=== PATIENT | female | born 2000 | race Caucasian/White ===

== ENCOUNTER 2024-03-24 17:37 | Emergency (ER) | payer OTHER ==
[~2024-03-24] VITALS: Ht 165.1 cm; Wt 73.0 kg
[2024-03-24 17:45] VITALS: O2SAT 96
[2024-03-24 19:02] LABS: HEMATOCRIT. 41.5 % (36.0-48.0); HEMOGLOBIN. 14.2 g/dL (12.0-16.0); MEAN CORPUSCULAR HEMOGLOBIN 31.1 pg (28.0-32.0); MEAN CORPUSCULAR HGB CONC 34.2 g/dL (31.0-37.0); MEAN CORPUSCULAR VOLUME 90.9 fL (81.0-99.0); MEAN PLATELET VOLUME 8.1 fl (7.4-10.4); PLATELET 332 x1000/uL (130-400); RED BLOOD CELL COUNT 4.57 mill/uL (4.2-5.4); RED CELL DISTRIBUTION WIDTH 13.6 % (11.6-14.6); WHITE BLOOD COUNT 17.1 x1000/uL (4.5-11.0)
[2024-03-24 19:03] LABS: DIFFERENTIAL COMMENT 1
[2024-03-24] MEDS: TETANUS, DIPHTHERIA, PERTUSSIS VAC/PF 0.5ML (>10YR OLD) IM ONE (19:11)
[2024-03-24 19:18] LABS: CHLORIDE 106 mEq/L (98-107); POTASSIUM 3.6 mEq/L (3.5-5.1); SODIUM 141 mEq/L (136-145)
[2024-03-24 19:19] LABS: CALCIUM 10.3 mg/dL (8.7-10.4); CARBON DIOXIDE 26 mEq/L (21-32)
[2024-03-24 19:21] LABS: HCG SCREEN NEGATIVE
[2024-03-24 19:24] LABS: CREATININE 1.1 mg/dL (0.6-1.0); GLUCOSE 83 mg/dL (70-105); UREA NITROGEN BLOOD 11 mg/dL (9-23)
[2024-03-24 19:26] LABS: ACETAMINOPHEN < 2 ug/mL (10-30)
[2024-03-24 19:27] LABS: ETHANOL BLOOD < 10 mg/dL (<10)
[2024-03-24 19:45] LABS: PLATELET ESTIMATE NORMAL
[2024-03-24 19:49] LABS: HEPATITIS B SURFACE ANTIGEN NEGATIVE (Negative)
[2024-03-24 20:11] LABS: HEPATITIS C AB NON REACTIVE (Neg) (Negative)
[2024-03-24] MEDS ORDERED: OLANZAPINE 10 MG/VIAL IM ONE (22:00)
[2024-03-25] MEDS: OLANZAPINE 10 MG/VIAL IM NR (01:30)
[2024-03-25 02:34] LABS: CLARITY URINE TURBID (CLEAR); COLOR URINE YELLOW (YELLOW); GLUCOSE URINE NEGATIVE (NEGATIVE); KETONES URINE 3+ (NEGATIVE); LEUKOCYTE ESTERASE URINE NEGATIVE (NEGATIVE); NITRITE URINE NEGATIVE (NEGATIVE); OCCULT BLOOD URINE 2+ (NEGATIVE); PH URINE 5.5 (4.5-8.0); PROTEIN URINE 1+ (NEGATIVE); SPECIFIC GRAVITY URINE 1.026 (1.005-1.030)
[2024-03-25 02:41] LABS: *AMPHETAMINES SCREEN URINE NEGATIVE (NEGATIVE); *BARBITURATES SCREEN URINE NEGATIVE (NEGATIVE); *BENZODIAZEPINES SCREEN URINE PRESUMPTIVE POSITIVE (NEGATIVE); METHADONE URINE SCREEN NEGATIVE (NEGATIVE); OPIATES URINE SCREEN NEGATIVE (NEGATIVE)
[2024-03-25 02:42] LABS: CANNABINOID URINE SCREEN PRESUMPTIVE POSITIVE (NEGATIVE); ECSTASY MDMA SCREEN URINE NEGATIVE (NEGATIVE); PHENCYCLIDINE URINE SCREEN NEGATIVE (NEGATIVE)
[2024-03-25 02:58] LABS: *COCAINE SCREEN URINE NEGATIVE (NEGATIVE)
[2024-03-25 03:35] LABS: SQUAMOUS EPITHELIAL CELL URINE FEW /lpf (RARE/1+)
[2024-03-25 03:39] LABS: AMORPHOUS SEDIMENT URINE 1+ /lpf; BACTERIA URINE NONE SEEN; RBC URINE 0-2 /hpf (0-2)
[2024-03-25 03:40] LABS: WBC URINE 0-2 /hpf (0-2)
[2024-03-25] MEDS: QUETIAPINE FUMARATE 50MG TABLET PO SCH (21:00)
[2024-03-26] MEDS: LORAZEPAM 2MG/ML INJ IM ONE (10:01)
[2024-03-27] MEDS: ARIPIPRAZOLE 5MG TABLET PO SCH (09:00)
[2024-03-27 14:09] VITALS: BP 125/60; PULSE 64; RESP 16; TEMP 98
== END 2024-03-27 17:14 | disposition home or self-care (01) ==
LOC: EDBD 17:37 → ER 17:37
DX: F19.90 Other psychoactive substance use, unspecified, uncomplicated (principal); Z98.890 Other specified postprocedural states; Z20.822 Contact with and (suspected) exposure to COVID-19
CPT/HCPCS: 80305; 81003; 80048; 80307; 80329; 80320; 84703; 85025; 87340; 36415; 86705; 99285; 87426; 96372; Z7610 ×2; J2060; J3490; G0480